=== PATIENT | male | born 1970 | race Caucasian/White ===

== ENCOUNTER 2024-03-05 11:13 | Emergency (ER) | payer MEDICAID ==
[~2024-03-05] VITALS: Ht 170.2 cm; Wt 86.0 kg
[2024-03-05 11:17] VITALS: TEMP 98.1; O2SAT 100
[2024-03-05 13:02] VITALS: BP 121/83; PULSE 85; RESP 16
[2024-03-05] MEDS: HYDROCODONE/ACETAMINOPHEN 5/325MG TABLET PO ONE (13:02)
[2024-03-05] MEDS ORDERED: IBUP-2028 MT (13:27)
[2024-03-05] MEDS ORDERED: LIDO700A15 TP (13:27)
[2024-03-05] MEDS ORDERED: METH-653 MT (13:27)
== END 2024-03-05 14:39 | disposition home or self-care (01) ==
LOC: ER 11:13
DX: S00.83XA Contusion of other part of head, initial encounter (principal); S00.81XA Abrasion of other part of head, initial encounter; E11.9 Type 2 diabetes mellitus without complications; Y08.89XA Assault by other specified means, initial encounter; Y93.89 Activity, other specified; Y92.89 Other specified places as the place of occurrence of the external cause; Y99.8 Other external cause status
CPT/HCPCS: 70486; 71045; 73030; 73060; 99284